=== PATIENT | male | born 1985 | race Caucasian/White ===

== ENCOUNTER 2023-10-20 13:18 | Emergency (ER) | payer MEDICAID ==
[~2023-10-20] VITALS: Ht 172.7 cm; Wt 104.5 kg
[2023-10-20] MEDS ORDERED: CETI10CA PO (14:15)
[2023-10-20] MEDS ORDERED: DEXT30CA6 PO (14:15)
[2023-10-20] MEDS ORDERED: FOLI0.4T6 PO (14:15)
[2023-10-20] MEDS ORDERED: LAMO200T31 PO (14:15)
[2023-10-20] MEDS ORDERED: LITHIUM (14:15)
[2023-10-20] MEDS ORDERED: DESV100T PO (14:15)
[2023-10-20] MEDS ORDERED: DEXT10TA2 PO (14:15)
[2023-10-20 14:20] LABS: BASOPHILS # (AUTO) 0.1 X10'3 (0-0.2); BASOPHILS % (AUTO) 0.9 % (0-1); EOSINOPHILS # (AUTO) 0.4 X10'3 (0-0.9); HEMATOCRIT 45.9 % (42.0-52.0); HEMOGLOBIN 15.7 g/dl (14.0-17.9); LYMPHOCYTES # (AUTO) 1.5 X10'3 (1.1-4.8); LYMPHOCYTES % (AUTO) 22.1 % (21-51); MEAN CORPUSCULAR HEMOGLOBIN 29.8 PG (27.0-31.0); MEAN CORPUSCULAR HGB CONC 34.2 g/dL (33.0-36.5); MONOCYTES # (AUTO) 0.6 X10'3 (0-0.9); MONOCYTES % (AUTO) 9.3 % (2-12); NEUTROPHILS # (AUTO) 4.1 X10'3 (1.8-7.7); NEUTROPHILS % (AUTO) 61.7 % (42-75); PLATELET COUNT 153 X10'3 (140-440); RED BLOOD COUNT 5.28 X10'6 (4.70-6.10); WHITE BLOOD COUNT 6.6 X10'3 (4.5-11.0)
[2023-10-20 14:38] LABS: ALBUMIN 3.9 G/DL (3.4-5.0); ANION GAP 8 (8-16); BLOOD UREA NITROGEN 7 MG/DL (7-18); BUN/CREATININE RATIO 6.9 (10.0-20.0); CALCIUM 9.1 MG/DL (8.5-10.1); CHLORIDE 106 MMOL/L (99-107); CREATININE 1.02 MG/DL (0.60-1.10); ETHANOL < 10 MG/DL (<10); GLUCOSE 131 MG/DL (70-104); POTASSIUM 3.5 MMOL/L (3.5-5.1); SODIUM 142 MMOL/L (135-145); THYROID STIMULATING HORMONE 1.49 ulU/ml (0.34-4.50); TOTAL CARBON DIOXIDE 28.1 MMOL/L (24-32); eCRCL 97 ML/MIN; eGFR 83 ML/MIN
[2023-10-20 15:12] LABS: BILIRUBIN,URINE NEGATIVE (Neg); CLARITY,URINE CLEAR (Clear); COLOR,URINE YELLOW (Yellow); GLUCOSE, URINE NEGATIVE (Neg); KETONES,URINE NEGATIVE (Neg); LEUKOCYTE ESTERASE ,URINE NEGATIVE (Neg); NITRITES, URINE NEGATIVE (Neg); OCCULT BLOOD,URINE NEGATIVE (Neg); PH,URINE 5.5 (4.8-8.0); PROTEIN,URINE NEGATIVE (Neg); UROBILINOGEN,URINE 0.2 E.U/dL (0.2-1.0)
[2023-10-20 15:22] LABS: UA COLLECTION TYPE NON-SPECIFIED
[2023-10-20 16:26] LABS: URINE AMPHETAMINE SCREEN POSITIVE (Neg); URINE BARBITUATE SCREEN NEGATIVE (Neg); URINE BENZODIAZEPINES SCREEN NEGATIVE (Neg); URINE CANNABINOID SCREEN NEGATIVE (Neg); URINE COCAINE SCREEN NEGATIVE (Neg); URINE METHADONE SCREEN NEGATIVE (Neg); URINE OPIATE SCREEN NEGATIVE (Neg); URINE PHENCYCLIDINE SCREEN NEGATIVE (Neg)
[2023-10-20] MEDS ORDERED: LORazepam 1 MG tablet PO PRN (21:55)
[2023-10-20] MEDS: temazepam 15mg capsule PO ONE (22:19)
[2023-10-21] MEDS: venlafaxine 25mg tablet PO SCH (07:40)
[2023-10-21] MEDS: cetirizine 10mg tablet PO SCH (07:40)
[2023-10-21] MEDS: lamoTRIgine 100mg tablet PO SCH (07:40)
[2023-10-21] MEDS: folic acid 0.4mg tablet PO SCH (07:40)
[2023-10-21] MEDS: lithium carbonate 150mg capsule PO SCH (07:40)
[2023-10-21] MEDS: DEXTROAMPHETAMINE SULFATE 10 MG PO SCH (07:41)
[2023-10-21 11:50] VITALS: BP 122/80; PULSE 94; RESP 16; TEMP 98.6; O2SAT 96
== END 2023-10-21 11:48 | disposition home or self-care (01) ==
LOC: ER 13:19
DX: R45.851 Suicidal ideations (principal); Z20.822 Contact with and (suspected) exposure to COVID-19; F32.A Depression, unspecified; Z79.899 Other long term (current) drug therapy
CPT/HCPCS: 36415; 80048; 80305; 80320; 81003; 84443; 85025; 87811; 99285